=== PATIENT | female | born 1960 | race Caucasian/White ===

== ENCOUNTER → 2023-09-25 07:58 | Outpatient (REF) | payer BC, SELFPAY | LOC: WDC 07:58 | PROVIDERS: ATTENDING PHYSICIAN Obstetrics & Gynecology Gynecology; FAMILY PHYSICIAN Family Medicine | DX: Z12.31 Encounter for screening mammogram for malignant neoplasm of breast (principal) | CPT/HCPCS: 77063; 77067 ==

== ENCOUNTER 2024-05-08 14:13 | Emergency (ER) | payer BC, SELFPAY ==
[2024-05-08 14:14] VITALS: BP 156/78
[2024-05-08 14:56] LABS: % Basophils 0.8 % (0-2); % Eosinophils 1.9 % (0-6); % Immature Granulocytes 0.2 % (0-0.5); % Lymphocytes 35.1 % (20.5-51.1); % Monocytes 7.4 % (1.7-9.3); % Neutrophils 54.6 % (42.2-75.2); Absolute Eosinophils 0.1 10^3/uL (0-0.7); Absolute Lymphocytes 1.8 10^3/uL (1.2-3.4); Absolute Monocytes 0.4 10^3/uL (0.1-0.6); Absolute Neutrophils 2.8 10^3/uL (1.4-6.5); Hematocrit 36.5 % (37.0-47.0); Hemoglobin 12.7 g/dL (12.0-16.0); Mean Corp Hgb Conc. 34.8 g/dL (33.0-37.0); Mean Corpuscular Hgb 31.6 pg (27.0-31.0); Mean Corpuscular Volume 90.8 fL (81.0-99.0); Nucleated Red Blood Cells % 0 %; Platelet Count 244 10^3/uL (130-400); Red Blood Cell Count 4.02 10^6/uL (4.20-5.40); White Blood Cell Count 5.1 10^3/uL (4.8-10.8)
[2024-05-08 15:10] LABS: ALT (SGPT) 19 U/L (0-35); AST (SGOT) 21 U/L (14-36); Albumin 4.3 g/dl (3.5-5.0); Alkaline Phosphatase 65 U/L (38-126); Blood Urea Nitrogen 12 mg/dl (7-17); Calcium 9.6 mg/dl (8.4-10.2); Carbon Dioxide 26 mmol/L (22-30); Chloride 107 mmol/L (98-107); Glucose 97 mg/dl (70-99); Potassium 4.3 mmol/L (3.5-5.1); Sodium 139 mmol/L (135-145); Total Bilirubin 0.8 mg/dl (0.2-1.3); Total Protein 6.9 g/dl (6.3-8.2); eGFR > 60.00
[2024-05-08 16:33] VITALS: BP 142/68; BMI 32.9
[2024-05-08 17:00] VITALS: BP 136/79
--- NOTE | 2024-05-08 19:20 | ED.GENMED ---
History of Present Illness
General
Chief Complaint: Dizziness
Time Seen by Provider: 05/08/24 16:27
History of Present Illness
History of Present Illness:
63-year-old female presents the emergency department for evaluation of lightheadedness and a 'strange pressure in my head' that began earlier today at approximately 6 to 7 AM. She feels occasionally dizzy and has tingling in bilateral hands.
Denies any vision changes or neck pain. Describes a sensation in her head as 'something tearing'.
Review of Systems
Review of Systems
Allergies reviewed?: Yes
All Other Systems: ROS reviewed and negative except as documented in HPI and ROS
Phy Exam
Physical Exam
Physical Exam:
GEN: Well appearing, NAD, WDWN
HEENT: Oral mucosa moist, no scleral icterus, no nasal congestion
Cardiac: Regular rate
Lung: No respiratory distress, no tachypnea
MSK: No gross deformity or injuries
Skin: Good color, no pallor or jaundice, no rashes
Neuro: AO x3; CN II-XII grossly intact. BUE strength 5/5 in all gray, sensation intact and symmetric. BLE strength 5/5 in all gray, sensation intact and symmetric
Psych: Calm, cooperative
Course
Orders/Labs/Results
Orders:
Orders
05/08/24 14:21
Electrocardiogram (*1) Urgent
Reason for Study: Vertigo / Dizzy
05/08/24 14:22
EKG- Treatment ONCE
05/08/24 14:44
Complete Blood Count/With Diff Urgent
Comprehensive Metabolic Panel Urgent
05/08/24 16:28
CT Head W/o Iv Contrast Urgent
Comment:
Reason For Exam: dizziness/paresthesias
Abnormal Lab Results
05/08/24
14:44
RBC 4.02 L 10^6/uL
(4.20-5.40)
Hct 36.5 L %
(37.0-47.0)
MCH 31.6 H pg
(27.0-31.0)
05/08/24 14:44
05/08/24 14:44
Vital Signs
Initial and Last Documented VS:
Initial Vital Signs
Temp Pulse Resp BP Pulse Ox
98.0 F 81 16 156/78 98
05/08/24 14:14 05/08/24 14:14 05/08/24 14:14 05/08/24 14:14 05/08/24 14:14
Last Documented Vital Signs
Temp Pulse Resp BP Pulse Ox
98.0 F 81 16 136/79 98
05/08/24 14:14 05/08/24 14:14 05/08/24 14:14 05/08/24 17:00 05/08/24 18:00
MDM/Problems Addressed
MDM/Problems Addressed:
Workup is unremarkable, patient reassured
*Critical Care Note
Total Time (30-74mins, 75-104mins- exclusive of procedures): Not Applicable
ED Attending Note
-
Portions of this chart may have been created with voice recognition software.� Occasional wrong word or��sound alike� substitutions may have occurred due to the inherent limitations of voice recognition software.
Discharge Plan
Departure
Patient Disposition: Home (Routine Discharge)
Date of Disposition: 05/08/24
Time of Disposition: 19:21
Patient with high blood pressure during this ER visit?: No
Discharge Problem:
Lightheadedness
Instructions: Dizziness, Nonvertigo, (DC)
Referrals:
Olga Ma DO [Family Provider] -
Interventions
Interventions:
*Risk Screen - Suicide Last Done: 05/08/24 14:14
*General Assessment Last Done: 05/08/24 16:35
*Neglect/Abuse Screening Last Done: 05/08/24 14:14
*ED- Fall Risk Assessment Last Done: 05/08/24 16:35
*ED COVID-19 Vaccine History Last Done: 05/08/24 16:35
*Nursing Disposition Last Done: 05/08/24 19:49
ED- Neurological Assessment Last Done: 05/08/24 16:35
ED- Cardiac Assessment Last Done: 05/08/24 16:35
ED Swallowing Screen Last Done: 05/08/24 16:35
Discharge Date and Time
Discharge Date/Time: 05/08/24 19:50
Print Language: [id number]
== END 2024-05-08 19:50 | disposition home or self-care (01) ==
LOC: EMR 14:13
PROVIDERS: Emergency Medicine; EMERGENCY PHYSICIAN Emergency Medicine; FAMILY PHYSICIAN Family Medicine
DX: R42 Dizziness and giddiness (principal)
CPT/HCPCS: 99284; 70450; 80053; 85025; 93005

== ENCOUNTER → 2024-10-02 07:20 | Outpatient (REF) | payer BC, SELFPAY | LOC: WDC 07:20 | PROVIDERS: ATTENDING PHYSICIAN Obstetrics & Gynecology Gynecology; FAMILY PHYSICIAN Family Medicine | DX: Z12.31 Encounter for screening mammogram for malignant neoplasm of breast (principal) | CPT/HCPCS: 77063; 77067 ==